=== PATIENT | female | born 1950 | race Caucasian/White ===

== ENCOUNTER → 2017-02-18 | Outpatient (CLI) | payer MEDICARE, OTHER ==
[~2017-02-18] MED LIST: ATOR40TA78 PO; GABA300C10 PO; HYDR-882 PO; LOSA50TA6 PO; METO25TA35 PO; TICA90TA PO
[2017-02-18 12:33] LABS: EPI LOT# 5695218
[2017-02-18 12:40] LABS: HCT (PFA) 46.3 % (34.6-47.8); HEMATOCRIT 45.9 % (34.6-47.8); HEMOGLOBIN 15.4 g/dL (11.7-16.4); PLATELET (PFA) 186 x10^3/uL (130-400); WHITE BLOOD COUNT 7.4 x10^3/uL (3.4-10)
[2017-02-18 12:59] LABS: BLOOD UREA NITROGEN 16 mg/dL (7-18)
[2017-02-18 13:57] LABS: EPI CARTRIDGE 73 SECONDS (72-193)
[2017-02-18 14:37] LABS: ASPARTATE AMINO TRANSFERASE 19 U/L (15-37)
== END | disposition home or self-care (01) ==
LOC: STAR 11:17
PROVIDERS: ATTEND Neurological Surgery
DX: Z01.811 Encounter for preprocedural respiratory examination (principal); M47.26 Other spondylosis with radiculopathy, lumbar region; M41.85 Other forms of scoliosis, thoracolumbar region; R91.1 Solitary pulmonary nodule; R79.1 Abnormal coagulation profile
CPT/HCPCS: 36415; 71020; 80053; 85014; 85025; 85049; 85576; 85610; 85730; 93005

== ENCOUNTER 2017-09-01 05:40 | Inpatient (IN) | payer MEDICARE, OTHER ==
[~2017-09-01] VITALS: Ht 154.9 cm; Wt 63.4 kg
[2017-09-01] MEDS ORDERED: MIDAZOLAM 1 MG/ML, 2ML ONE (06:59)
[2017-09-01] MEDS ORDERED: BUPIVACAINE/PF 0.25% ONE (06:59)
[2017-09-01] MEDS ORDERED: NEOSPORIN OINT, 15GM ONE (07:00)
[2017-09-01] MEDS ORDERED: BACITRACIN 50,000 UNIT ONE (07:00)
[2017-09-01] MEDS ORDERED: THROMBIN 5,000 UNIT VIAL TP ONE (07:00)
[2017-09-01] MEDS ORDERED: EPINEPHRINE 1 MG/ML, 1ML ONE (07:00)
[2017-09-01] MEDS ORDERED: FENTANYL PF 250 MCG/5ML ONE (07:00)
[2017-09-01] MEDS ORDERED: LACTATED RINGERS 1,000 ML IV SCH (07:19)
[2017-09-01] MEDS ORDERED: DEXAMETHASONE 4 MG/ML, 1ML ONE (07:26)
[2017-09-01] MEDS ORDERED: CEFAZOLIN 1,000 MG ONE (07:26)
[2017-09-01] MEDS ORDERED: SUCCINYLCHOLINE 20 MG/ML, 10ML ONE (07:26)
[2017-09-01] MEDS ORDERED: ONDANSETRON 2MG/ML, 2ML ONE (07:26)
[2017-09-01] MEDS ORDERED: PROPOFOL 10 MG/ML, 20ML ONE (07:26)
[2017-09-01] MEDS ORDERED: ROCURONIUM 10 MG/ML,10ML ONE (07:26)
[2017-09-01 07:33] VITALS: BP 152/96
[2017-09-01] MEDS ORDERED: BUPIVACAINE/PF 0.25% INFIL ONE (08:18)
[2017-09-01] MEDS ORDERED: LABETALOL 5MG/ML, 20ML IV PRN (08:30)
[2017-09-01] MEDS ORDERED: METOCLOPRAMIDE 5 MG/ML, 2ML IV PRN (08:30)
[2017-09-01] MEDS ORDERED: ALBUTEROL SULFATE 2.5 MG/3 ML NPPB PRN (08:30)
[2017-09-01] MEDS ORDERED: ONDANSETRON 2MG/ML, 2ML IVPush PRN (08:30)
[2017-09-01] MEDS ORDERED: PROMETHAZINE 25 MG/ML, 1ML IV PRN (08:30)
[2017-09-01] MEDS ORDERED: ALBUTEROL/IPRATROPIUM 2.5MG/0.5MG, 3 ML NPPB PRN (08:30)
[2017-09-01] MEDS ORDERED: HYDROmorphone 1 MG/ML, 1ML IV PRN (08:30)
[2017-09-01] MEDS ORDERED: MEPERIDINE/PF 25MG/0.5ML IVPush PRN (08:30)
[2017-09-01] MEDS ORDERED: HYDROcodone/APAP 7.5-325MG/15ML UDC PO PRN (08:30)
[2017-09-01] MEDS ORDERED: hydrALAzine 20 MG/ML, 1ML IV PRN (08:30)
[2017-09-01] MEDS ORDERED: HYDROcodone/APAP 7.5-325MG/15ML UDC ONE (10:19)
[2017-09-01] MEDS ORDERED: MORPHINE SULFATE 4 MG/ML, 1ML ONE ×2 (10:19→10:34)
[2017-09-01] MEDS ORDERED: FENTANYL PF 100 MCG/2ML ONE (10:19)
[2017-09-01] MEDS: FENTANYL PF 100 MCG/2ML IV PRN ×2 (10:26→10:30)
[2017-09-01] MEDS: morphine SULFATE 10 MG/ML, 1ML IV PRN ×3 (10:30→11:01)
[2017-09-01] MEDS ORDERED: CYCLOBENZAPRINE 10 MG TABLET ONE (10:33)
[2017-09-01] MEDS ORDERED: CYCLOBENZAPRINE 10 MG TABLET PO ONE (11:00)
[2017-09-01] MEDS ORDERED: MEPERIDINE/PF 25MG/0.5ML ONE (11:31)
[2017-09-01] MEDS ORDERED: OXYcodone/APAP 5/325MG TABLET ONE (12:39)
[2017-09-01] MEDS ORDERED: BISACODYL 10 MG SUPP PR PRN (13:00)
[2017-09-01] MEDS ORDERED: ONDANSETRON 2MG/ML, 2ML IV PRN (13:00)
[2017-09-01] MEDS ORDERED: KETOROLAC 30 MG/1 ML IV ONE (13:00)
[2017-09-01] MEDS ORDERED: NS + 20MEQ KCL 1,000 ML IV SCH (13:00)
[2017-09-01] MEDS ORDERED: OXYcodone/APAP 5/325MG TABLET PO PRN ×2 (13:00)
[2017-09-01] MEDS ORDERED: MAGNESIUM HYDROXIDE 8%, 30ML UDC PO PRN (13:00)
[2017-09-01] MEDS ORDERED: KETOROLAC 30 MG/1 ML IVPush SCH (13:00)
[2017-09-01] MEDS ORDERED: HYDROcodone/APAP 5/325 TABLET PO PRN (13:00)
[2017-09-01] MEDS ORDERED: PROMETHAZINE 25 MG/ML, 1ML IM PRN (13:00)
[2017-09-01] MEDS ORDERED: KETOROLAC 30 MG/1 ML IM SCH (13:00)
[2017-09-01] MEDS ORDERED: CYCLOBENZAPRINE 10 MG TABLET PO PRN (13:00)
[2017-09-01 13:03] VITALS: BP 132/81
[2017-09-01] MEDS ORDERED: CEFAZOLIN PMX 1GM/50ML 50 ML IVPB SCH (13:30)
[2017-09-01] MEDS ORDERED: GABAPENTIN 300 MG CAPSULE PO SCH (16:00)
[2017-09-01] MEDS ORDERED: TIZANIDINE 4MG TABLET PO SCH (16:00)
[2017-09-01 16:49] VITALS: BP 148/67
[2017-09-01] MEDS ORDERED: TIZA4CAP PO (17:00)
[2017-09-01] MEDS ORDERED: METOPROLOL TARTRATE 25 MG TABLET PO SCH (18:00)
[2017-09-01] MEDS ORDERED: ATORVASTATIN 80 MG TABLET PO SCH (21:00)
[2017-09-02] MEDS ORDERED: LOSARTAN 50MG TABLET PO SCH (09:00)
[2017-09-02] MEDS ORDERED: SENNA/DOCUSATE TABLET PO SCH (09:00)
== END 2017-09-01 19:02 | disposition home or self-care (01) | DRG 517 ==
LOC: OUT 05:40 → 4NOR 11:53 → OUT 12:03
PROVIDERS: ADMIT Neurological Surgery; ATTEND Neurological Surgery
PROC: 4A1134G Monitoring of Peripheral Nervous Electrical Activity, Intraoperative, Percutaneous Approach (ICD-10-PCS; 2017-09-01)
PROC: 01NB0ZZ Release Lumbar Nerve, Open Approach (ICD-10-PCS; principal; 2017-09-01 07:30)
DX: M47.26 Other spondylosis with radiculopathy, lumbar region (principal); M48.061 Spinal stenosis, lumbar region without neurogenic claudication
CPT/HCPCS: 72100; 95938; 95941; J0171; J0690; J1100; J1885; J2175; J2250; J2405; J2704; J3010; J3490; J0330; J2270; J7120